=== PATIENT | male | born 2000 | race Caucasian/White ===

== ENCOUNTER 2021-05-06 12:35 | Emergency (ER) | payer SELFPAY ==
[2021-05-06 12:47] VITALS: BP 161/89; PULSE 91; RESP 16; TEMP 36.8; O2SAT 99
[2021-05-06 12:50] VITALS: BP 161/89; PULSE 91; RESP 16; TEMP 36.8; O2SAT 99
--- NOTE | 2021-05-06 13:04 | ED.GENADULT ---
HPI - General Adult General Chief complaint: Skin/Abscess/Foreign Body Stated complaint: insect bite Time Seen by Provider: 05/06/21 12:56 Source: patient and RN notes reviewed Mode of arrival: ambulatory Limitations: no limitations History of Present Illness HPI narrative: 20-year-old male presents with complaints of increasing redness, swelling, and itchy surrounding the left eye upon awakening this morning. ?Edwardo reports being stung on the side of LT eye by a wasp on 05/05/2021. Applied ice and Benadryl 50mg last this morning at approximately without improvement. ?No burning, bleeding, or drainage. ?Denies fever, chills, headaches, weakness, fatigue, myalgia, or tongue swelling. Denies dyspnea. Tolerating p.o. intake. ?Remains active. ?The patient reports he has not been diagnosed with COVID-19. The patient reports he received 2 Bag of Ice COVID-19 vaccines. The patient reports he is not waiting for the results of a COVID-19 lab test. The patient reports she does not have weakness, fatigue, or myalgia. The patient reports he does not have a new or worsening cough or shortness of breath. The patient reports he does not have any rhinorrhea, congestion, loss of taste, sore throat, and diarrhea. Denies recent traveling. Denies concerns for COVID-19 or exposures. ?At this time, the patient is not suspected of having COVID-19. Some parts of this dictation were generated by voice recognition software and may contain typographical and/or grammatical inaccuracies. Related Data Allergies Allergy/AdvReac Type Severity Reaction Status Date / Time No Known Allergies Allergy Verified 05/06/21 12:38 Review of Systems Review of Systems: Narrative: CONSTITUTIONAL: Denies fever, chills, sweats. EYES: Denies visual changes, redness, discharge. ENT: Denies otalgia, rhinorrhea, congestion, sore throat. CARDIOVASCULAR: Denies chest pain, palpitations, edema. RESPIRATORY: Denies dyspnea, wheezing, cough. GASTROINTESTINAL: Denies abdominal pain, nausea, vomiting, diarrhea. GENITOURINARY: Denies dysuria, hematuria, abnormal discharge. SKIN: Complaints of redness, swelling, and itchy surrounding the left eye. Denies drainage. MUSCULOSKELETAL: Denies acute back pain, joint pain, or myalgia. NEUROLOGIC: Denies numbness or focal weakness. PSYCHIATRIC: Denies anxiety or depression. All systems reviewed & are unremarkable except as noted in HPI and below. [facility] Past Medical History Medical History (Updated 05/14/21 @ 09:25 by NATASHA Robins) No significant past medical history Surgical History Surgical History (Updated 05/06/21 @ 13:23 by NATASHA Robins) No significant past surgical history Family History Family History (Updated 05/06/21 @ 13:24 by NATASHA Robins) Father Asthma Mother Alive and well Social History Social History (Updated 05/06/21 @ 13:24 by NATASHA Robins) Smoking status: Never smoker Tobacco type: cigarettes Second hand tobacco smoke exposure: No Alcohol intake: never Substance use: current Substance use type: marijuana Living arrangements: with family Occupation/Education: occupation Gender identity (if verbalized by the patient): Male Sexual Orientation (if Verbalized by the Patient): Straight or Heterosexual Comments At time of signature, agree with the nurse past medical, surgical, social, and family history. There is no relevant family history pertinent to the presenting complaint. Exam Narrative: Exam Narrative: GENERAL: This is a well-nourished, well-developed patient, in no apparent distress. Talks in full sentences and ambulates with steady gait without dyspnea. HEAD: Normocephalic, atraumatic. EYES: PERRL. Bilateral sclera clear/white. Vision is grossly intact. LT eye sclera white and clear without drainage, no swelling, no tenderness on palpation or erythema. Upper, lower eyelids, and the surrounding area of the eye swollen with moderate erythe
[2021-05-06 13:15] VITALS: BP 160/90
[2021-05-06] MEDS: FAMOTIDINE 20 MG TABLET 40 MG PO (13:26)
--- NOTE | 2021-05-06 13:26 | PC.NURSE ---
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 vorb fire control system installer suarez 20 mg pepcid po.
== END 2021-05-06 13:41 | disposition home or self-care (01) ==
PROVIDERS: Emergency Provider Nurse Practitioner Family
DX: S00.262A Insect bite (nonvenomous) of left eyelid and periocular area, initial encounter (principal); W57.XXXA Bitten or stung by nonvenomous insect and other nonvenomous arthropods, initial encounter
CPT/HCPCS: 96372; 99213; A9270; G0463; J1100